=== PATIENT | female | born 1970 | race Caucasian/White ===

== ENCOUNTER 2016-12-22 07:08 | Day surgery (SDC) | payer OTHER ==
[2016-12-18 11:52] LABS: ABSOLUTE EOSINOPHILS # (AUTO) 0.1 10^3/uL (0.0-0.6); ABSOLUTE LYMPHOCYTES (AUTO) 1.9 10^3/uL (0.5-4.7); ABSOLUTE MONOCYTES (AUTO) 0.3 10^3/uL (0.1-1.4); ABSOLUTE NEUT (AUTO) 3.1 10^3/uL (1.7-8.2); BASOPHILS % (AUTO) 0.7 % (0-2); EOSINOPHILS % (AUTO) 1.1 % (0-6); HEMATOCRIT 40.4 % (36.0-47.0); HEMOGLOBIN 13.2 g/dL (12.0-15.5); HGB HCT DIFFERENCE -0.8; LYMPHOCYTES % (AUTO) 35.5 % (13-45); MEAN CORPUSCULAR HEMOGLOBIN 27.6 pg (27.0-33.4); MEAN CORPUSCULAR HGB CONC 32.7 g/dL (32.0-36.0); MEAN CORPUSCULAR VOLUME 84 fl (80-97); MONOCYTES % (AUTO) 6.1 % (3-13); RED BLOOD COUNT 4.79 10^6/uL (3.72-5.28); RED CELL DISTRIBUTION WIDTH 14.1 % (11.5-14.0); SEGMENTED NEUTROPHILS % (AUTO) 56.6 % (42-78); WHITE BLOOD COUNT 5.4 10^3/uL (4.0-10.5)
[2016-12-18 11:53] LABS: APPEARANCE,URINE SLIGHTLY-CLOUDY; BILIRUBIN,URINE NEGATIVE (NEGATIVE); GLUCOSE, URINE NEGATIVE (NEGATIVE); KETONES,URINE NEGATIVE (NEGATIVE); LEUKOCYTE ESTERASE,URINE NEGATIVE (NEGATIVE); NITRITE,URINE NEGATIVE (NEGATIVE); PROTEIN,URINE NEGATIVE (NEGATIVE); URINE SPECIFIC GRAVITY 1.021; UROBILINOGEN,URINE NEGATIVE mg/dL (<2.0)
[2016-12-18 12:15] LABS: ANION GAP 13 (5-19); BLOOD UREA NITROGEN 10 mg/dL (7-20); CALCIUM 9.3 mg/dL (8.4-10.2); CARBON DIOXIDE 26 mmol/L (22-30); CHLORIDE 103 mmol/L (98-107); CREATININE RESULT 0.64 mg/dL (0.52-1.25); GLUCOSE 81 mg/dL (75-110); POTASSIUM 4.4 mmol/L (3.6-5.0); SODIUM 142.2 mmol/L (137-145)
--- NOTE | 2016-12-19 17:51 | EKG REPORT ---
SEVERITY:- NORMAL ECG - SINUS RHYTHM : Confirmed by: Luisa Lao MD 19-Dec-2016 17:50:26
[~2016-12-22 07:08] MED LIST: CEFAZOLIN 2 GM/D5W RTU 2 GM/50 ML RTUPB IV PRN; LACTATED RINGERS 1000 ML IV PRN; LIDOCAINE 0.5% INJ-PF (5 MG/ML) 50 ML SDV SUBCUT PRN
[2016-12-22] MEDS ORDERED: BUPIVACAINE HCL 0.5 % INJ/PF 30 ML SDV ONE (07:18)
[2016-12-22] MEDS ORDERED: FENTANYL CITRATE INJ/PF 100 MCG/2 ML AMPUL ONE (09:38)
[2016-12-22] MEDS ORDERED: ONDANSETRON HCL INJ/PF 4 MG/2 ML SDV ONE (09:39)
[2016-12-22] MEDS ORDERED: MIDAZOLAM 2 MG/2 ML INJ ONE (09:39)
[2016-12-22] MEDS ORDERED: MORPHINE SULFATE 10 MG/ML INJ ONE (09:39)
[2016-12-22] MEDS ORDERED: IBUPROFEN INJ 800 MG/8 ML VIAL IV ONE (09:39)
[2016-12-22] MEDS ORDERED: PROPOFOL INJ 200 MG/20 ML VIAL IV ONE (09:39)
[2016-12-22] MEDS ORDERED: DEXAMETHASONE SOD PHOSPHATE INJ 4 MG/1 ML VIAL ONE (09:39)
[2016-12-22] MEDS ORDERED: PROMETHAZINE HCL INJ 25 MG/1 ML VIAL IV PRN ×2 (10:15)
[2016-12-22] MEDS ORDERED: MEPERIDINE HCL/PF INJ 25 MG/1 ML DISP.SYRIN IV PRN (10:15)
[2016-12-22] MEDS ORDERED: MORPHINE SULFATE 10 MG/ML INJ IV PRN (10:15)
[2016-12-22] MEDS ORDERED: DIPHENHYDRAMINE HCL 50 MG/ML VIAL IV PRN (10:15)
[2016-12-22] MEDS ORDERED: OXYCODONE-ACETAMINOPHEN 5-325 MG TABLET PO PRN ×3 (10:15→10:36)
[2016-12-22] MEDS ORDERED: ONDANSETRON HCL INJ/PF 4 MG/2 ML SDV IV PRN ×2 (10:15→10:36)
[2016-12-22] MEDS ORDERED: FENTANYL CITRATE INJ/PF 100 MCG/2 ML AMPUL IV PRN ×3 (10:15)
[2016-12-22] MEDS ORDERED: HYDROMORPHONE HCL INJ/PF 2 MG/ML AMPULE IV PRN (10:36)
--- NOTE | 2016-12-22 10:39 | PDOC DISCHARGE SUMMARY ---
Discharge Summary (SDC) - Discharge Final Diagnosis: LEFT de Quervain's Tenosynovitis Date of Surgery: 12/22/16 Discharge Date: 12/22/16 Condition: Good Treatment or Instructions: Schedule Follow Up w/ Dr. Abel Bang @ [facility] to be seen in 10-14 days or as scheduled [place]: [place]: [place]: Keep splint clean/dry/intact. Ice and elevate May begin finger range of motion attempting to make full fist. Stool softener of choice when on pain medication. Prescriptions: Oxycodone HCl/Acetaminophen [Percocet 5-325 mg Tablet] 1 - 2 tab PO ASDIR PRN # 40 tablet PRN Reason: Discharge Diet: As Tolerated Respiratory Treatments at Home: Deep Breathing/Coughing Discharge Activity: No Lifting Over 10 Pounds, No Lifting/Push/Pulling Report the Following to Your Physician Immediately: Fever over 101 Degrees, Unusual Bleeding, Redness, Swelling, Warmth, Increased Soreness
--- NOTE | 2016-12-22 10:45 | Operative Report ---
Operative Report DATE OF SURGERY: 12/22/16 PREOPERATIVE DIAGNOSIS: LEFT wrist de Quervain's Tenosynovitis POSTOPERATIVE DIAGNOSIS: LEFT wrist de Quervain's Tenosynovitis. Mass LEFT wrist OPERATION: 1. First dorsal compartment release. 2. Excision mass left wrist. 3. Tenosynovectomy left wrist first dorsal compartment SURGEON: RADHA CHRISTIAN ANESTHESIA: GA COMPLICATIONS: None ESTIMATED BLOOD LOSS: Minimal PROCEDURE: Indication for above procedure: 46-year-old female with history de Quervains of her left wrist. Conservative management was attempted without resolution of her symptoms. At that point we discussed treatment options including continued conservative management versus operative intervention. Risks and benefits were explained to the patient she verbalized understanding of the procedure. Procedure In Detail: Patient was seen and evaluated in the preoperative holding area. The LEFT upper extremity was initialized and marked. Patient received 2g of Ancef IV for bacterial prophylaxis. Patient was taken back to the operative room where transferred to the operative table and placed under general anesthesia. Once they were adequately anesthetized a nonsterile tourniquet was placed on the upper extremity. A surgical team debriefing was performed ensuring all instrumentation was available, the surgical procedure was discussed with possible concerns reviewed. The upper extremity was prepped with chlorhexidine and alcohol and draped in a sterile fashion. A timeout was done identifying correct patient, procedure and extremity everyone in attendance agree with this and verbalized no concerns. The extremity was exsanguinated the tourniquet was inflated to 250 mmHg. Longitudinal skin incision was made over the first dorsal compartment. Blunt dissection was performed to the distal branches of the superficial radial nerve were identified and protected throughout the case. Patient's cyst along the first dorsal compartment with identified after excision firm solid mass than a cyst. It was excised in its entirety and sent to pathology. I then identified the first dorsal compartment which was then released dorsally to avoid postoperative subluxation of the first dorsal compartment tendons. Identified the APL and EPB to ensure there is no evidence of separate EPB sub-sheath. There was fraying of the first dorsal compartment tendons with a significant amount of tenosynovium. A tenosynovectomy was performed. The wound was then irrigated with normal saline. Tourniquet was deflated. Any peripheral vascular was coagulated with bipolar cautery until the wound was dry. 10 cc of 0.5% Marcaine without epinephrine was injected for postoperative pain control. Skin was closed with a running subcuticular 4-0 Monocryl reinforced with Dermabond and Steri-Strips. We dressed with 4 x 4's and patient was placed in a thumb spica splint. Sponge counts, instrument counts, needle counts counts were correct. Patient was then awoken from anesthesia. Transferred from the operating room table to the operating room stretcher. There was no intraoperative complications patient tolerated procedure well stable to PACU. Postoperative plan: Patient will follow-up in the office in 10-14 days splint will be removed. She will begin range of motion at that time. We will discuss findings with pathology results.
[2016-12-22 13:17] VITALS: BP 125/66
== END 2016-12-22 13:20 | disposition home or self-care (01) ==
LOC: OROUT 07:08
PROVIDERS: ATTEND Orthopaedic Surgery
PROC: 0LB60ZZ Excision of Left Lower Arm and Wrist Tendon, Open Approach (ICD-10-PCS; principal; 2016-12-22 09:15)
DX: M65.4 Radial styloid tenosynovitis [de Quervain] (principal); M67.432 Ganglion, left wrist; M25.532 Pain in left wrist
CPT/HCPCS: 93005; 36415; 85025; 81025; 80048; 81001; 88304 ×2; 71020; 93010; 25116; J2250; J1100; J3010; J2270; J2405; J2704; J0690; J1741; 1810